=== PATIENT | female | born 2000 | race African-American/Black ===

== ENCOUNTER 2024-03-26 14:48 | Outpatient (CLI) | payer OTHER, SELFPAY ==
--- NOTE | ~2024-03-26 | US_ITS ---
EXAMINATION: US OB <= 14 weeks fetus DATE: 03/26/2024 14:47 INDICATION: Encounter for supervision of normal TECHNIQUE: Real-time pelvic ultrasound utilizing both a transvaginal and transabdominal probe was pe rformed. The interpreting radiologist was not present for the study. COMPARISON: None. FINDINGS: The uterus measures 9.6 x 6.8 x 8.3 cm. There is an intrauterine gestational sac. A yolk sac and fet al pole are identified. The crown rump length measures 2.9 cm, which correlates with an estimated ges tational age of 9 weeks and 5 days. heart motion is identified measuring 178 beats per minute ( bpm) by M-mode Doppler. The right ovary measures 2.1 x 2.0 x 1.7 cm. The left ovary measures 4.7 x 2.9 x 2.2 cm. And 2.7 x 2. 2 x 2.0 cm anechoic likely corpus luteum cyst in the left ovary. There is no free fluid in the pelvis . IMPRESSION: 1. Single living fetus with heart rate of 107 bpm. 2. Gestational age by ultrasound of 9 weeks 5 day(s) +/- 5 day(s) with ultrasound estimated date of delivery (SHAHEEN) of 10/22/2024. Reviewed, dictated and finalized at location B. IMPRESSION: 1. Single living fetus with heart rate of 107 bpm. 2. Gestational age by ultrasound of 9 weeks 5 day(s) +/- 5 day(s) with ultraso und estimated date of delivery (SHAHEEN) of 10/22/2024.
[2024-03-26 15:28] LABS: Basophils Percent Auto 0.3 % (0.2-1.2); Eosinophils Absolute Auto 0.1 K/mm3 (0-0.3); Eosinophils Percent Auto 0.7 % (0-4.4); Hematocrit 38.2 % (37.0-47.0); Hemoglobin 12.9 g/dL (12.0-15.0); Immature Granulocyte Absolute 0.03 K/mm3 (0.00-0.031); Immature Granulocyte Percent A 0.3 % (0-0.5); Lymphocytes Absolute Auto 1.55 K/mm3 (0.9-3.2); Lymphocytes Percent Auto 15.9 % (18.3-44.2); Mean Corpuscular HGB Conc 33.8 g/dl (32-36); Mean Corpuscular Hemoglobin 29.2 pg (26-34); Mean Corpuscular Volume 86.4 fl (80-100); Mean Platelet Volume 10.2 fl (7.4-10.4); Monocytes Absolute Auto 0.7 K/mm3 (0.1-0.6); Monocytes Percent Auto 7.3 % (2.6-8.5); Neutrophils Absolute Auto 7.4 K/mm3 (1.3-6.7); Neutrophils Percent Auto 75.5 % (45.5-73.1); Platelet Count Result 242 k/mm3 (150-375); Red Blood Count 4.42 M/mm3 (4.2-5.4); Red Cell Distribution Width 13.5 % (11.5-14.5); White Blood Count 9.8 K/mm3 (4.5-10.0)
[2024-03-26 17:58] LABS: Hepatitis B Surface Antigen Negative (Negative); Rubella IgG Antibody 16.3 IU/ML
[2024-03-26 18:02] LABS: HIV 1/2 Ab P24 Ag Result Negative (Negative)
[2024-03-27 14:18] LABS: Rapid Plasma Reagin Non-Reactive (NonReactive)
[2024-03-27 14:43] LABS: CMV IgG Antibody <0.60 U/mL
== END 2024-03-26 14:49 | disposition home or self-care (01) ==
PROVIDERS: PCP Obstetrics & Gynecology; Referring Provider Obstetrics & Gynecology; Visit Provider Student in an Organized Health Care Education/Training Program
DX: Z34.90 Encounter for supervision of normal pregnancy, unspecified, unspecified trimester (principal); N91.2 Amenorrhea, unspecified
CPT/HCPCS: 36415; 76801; 84702; 85025; 85660; 86592; 86644; 86703; 86747; 86762; 86787; 86850; 86900; 86901; 87086; 87340; G0432